=== PATIENT | male | born 1975 | race Caucasian/White ===

== ENCOUNTER 2021-01-18 20:08 | Emergency (ER) | payer OTHER, BC ==
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
[2021-01-18] MEDS ORDERED: Acetaminophen/HYDROcodone 325-5 MG Tab PO ONE (22:29)
--- NOTE | 2021-01-19 09:20 | CR ---
Left clavicle: 2 views of the left clavicle were obtained. Comparison: No prior clavicle study is available. Slightly comminuted fracture is noted within the shaft of the clavicle. There is foreshortening being seen with displacement by over a shaft width. Acromioclavicular joint is normal. No additional abnormality is appreciated. Impression: 1. Left clavicle fracture as described above. Diagnostic code #3
== END 2021-01-18 22:34 | disposition home or self-care (01) ==
LOC: JD.ED 20:08
DX: S42.022A Displaced fracture of shaft of left clavicle, initial encounter for closed fracture (principal); V19.9XXA Pedal cyclist (driver) (passenger) injured in unspecified traffic accident, initial encounter; Y92.410 Unspecified street and highway as the place of occurrence of the external cause
CPT/HCPCS: 73000; 99283; A9270

== ENCOUNTER 2021-01-24 06:22 | Day surgery (SDC) | payer BC ==
[~2021-01-24 06:22] MED LIST: Acetaminophen/HYDROcodone 325-5 MG Tab PO PRN; Dexamethasone 4 MG/ML 5 ML MDV ONE; EPINEPHrine 1 MG/ML SDV ONE; Ketorolac 30 MG/ML SDV ONE; Lidocaine 1% 4 ML ONE; Midazolam 1 MG/ML 2 ML SDV ONE; Ondansetron 4 MG/2 ML SDV ONE; Propofol 200 MG/20 ML SDV ONE; Rocuronium 50 MG/5 ML Vial ONE; Ropivacaine 0.5% 5 MG/ML 30 ML SDV ONE; ceFAZolin 1 GM Vial ONE; fentaNYL 250 MCG/5 ML SDV ONE
[2021-01-24] MEDS ORDERED: Bupivacaine 0.25% 10 ML SDV ONE (06:26)
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
[2021-01-24] MEDS ORDERED: Lactated Ringers 1,000 ML IV SCH (07:00)
[2021-01-24] MEDS ORDERED: Sodium Chloride 0.9% 10 ML Syringe FLUSH PRN (07:00)
[2021-01-24] MEDS ORDERED: Lidocaine 1%/Sod Bicarbonate in NS 8.4% 1 ML Syringe IDERM PRN (07:00)
[2021-01-24] MEDS ORDERED: ePHEDrine 50 MG/ML SDV ONE (07:26)
[2021-01-24] MEDS ORDERED: Lactated Ringers 1,000 ML ONE (07:52)
[2021-01-24] MEDS ORDERED: HYDROmorphone 0.5 MG/0.5 ML Syringe IVPUSH PRN (08:11)
[2021-01-24] MEDS ORDERED: Ondansetron 4 MG/2 ML SDV IVPUSH PRN (08:11)
[2021-01-24] MEDS ORDERED: fentaNYL 100 MCG/2 ML SDV IVPUSH PRN (08:11)
--- NOTE | 2021-01-24 08:53 | PCM.POSTAN ---
POST ANESTHESIA ASSESSMENT - MENTAL STATUS Mental Status: Alert, Oriented - VITAL SIGNS Vital Signs: Last Vital Signs Temp 97.3 F 01/24/21 08:40 Pulse 65 01/24/21 08:40 Resp 12 01/24/21 08:40 BP 116/0 L 01/24/21 08:40 Pulse Ox 99 01/24/21 08:40 - RESPIRATORY Respiratory Status: Respiratory Rate WNL, Airway Patent, O2 Saturation Stable - CARDIOVASCULAR CV Status: Pulse Rate WNL, Blood Pressure Stable - GASTROINTESTINAL GI Status: No Symptoms - PAIN Pain Score: 0 - POST OP HYDRATION Hydration Status: Adequate & Stable (No complaints at this time. )
--- NOTE | 2021-01-24 08:57 | PCM.PRNOTE ---
- Free Text/Narrative Note: Anesthesia Note: Left Interscalene Block Time Out: 06 Start: 656 Stop: 706 Procedure: Left interscalene block under US guidance for postoperative pain control requested by Dr. Sun. Patient chart reviewed, risk/benefits discussed with patient, consent obtained. Patient positioned supine with HOB up 30 degrees, monitors/alarms on, oxygen placed via nasal cannula at 2 LPM. IV sedation administered: Versed 2mg IV, Fentanyl 50mcg IV given in preop prior to block placement (also charted on OR AUG). Right shoulder prepped with three chloropreps. Sterile drapes placed with aseptic technique noted. Under US guidance, left subclavian artery visualized along with the left brachial plexus. Plexus followed up to C6 cricoid level, and area. Brachial plexus visualized with ultrasound. 22gauge 2 inch stimiplex needle advanced under US with 0.6mV with stimulation of biceps noted. Good stimulation noted with decreased voltage and absent at 0.3mVs. 1ml of Normal Saline injected with loss of stimulation noted to confirm needle not placed intraneurally. Incremental dosing of 5mls with negative aspiration noted prior to each injection of 0.5% ropivacaine with 1:200,000 epinephrine. Total volume=20mls. Patient tolerated procedure well. No paresthesias and no pressure felt by patient noted when injecting local anesthestic. 10 minutes following block patient denied pain to clavicle. Please refer to nurses noted for vital signs. Yoselyn Mehta CRNA
--- NOTE | 2021-01-24 08:58 | CR ---
Left clavicle: 3 fluoroscopic spot views were obtained of the left clavicle utilizing C-arm device. Comparison: Prior left clavicle study of 01/18/21. Study shows placement of plate and screws affixing previous clavicular fracture. Alignment appears to be anatomic. Minimal spurring is noted within the acromioclavicular joint. Fluoroscopy time is given as 5.2 seconds. Impression: 1. Procedural study as noted above. Diagnostic code #2
--- NOTE | 2021-01-24 10:42 | PCM48HPAN ---
Post Anesthesia Note - EVALUATION WITHIN 48HRS OF ANESTHETIC Vital Signs in Normal Range: Yes Patient Participated in Evaluation: Yes Respiratory Function Stable: Yes Airway Patent: Yes Cardiovascular Function Stable: Yes Hydration Status Stable: Yes Pain Control Satisfactory: Yes Nausea and Vomiting Control Satisfactory: Yes Mental Status Recovered: Yes Vital Signs: Last Vital Signs Temp 36.7 C 01/24/21 10:00 Pulse 55 L 01/24/21 10:00 Resp 16 01/24/21 10:00 BP 110/63 01/24/21 10:00 Pulse Ox 95 01/24/21 10:00
--- NOTE | 2021-02-08 06:53 | PCM.OPNOTE ---
- General Post-Op/Procedure Note Date of Surgery/Procedure: 01/24/21 Operative Procedure(s): open reduction internal fixation left clavicle shaft fracture Pre Op Diagnosis: left clavicle shaft fracture Post-Op Diagnosis: Same Anesthesia Technique: General ET Tube, Regional Block Primary Surgeon: Mason Sun Anesthesia Provider: Yoselyn Mehta Commodity Specialist: Cayla Oconnor EBL in mLs: 10 Complications: None Condition: Good
--- NOTE | 2021-02-08 10:36 | OR ---
DATE OF OPERATION: 01/24/2021 SURGEON: Mason Sun MD OPERATION PERFORMED: Open reduction and internal fixation of left midshaft clavicle fracture. PREOPERATIVE DIAGNOSIS: Left midshaft clavicle fracture. POSTOPERATIVE DIAGNOSIS: Left midshaft clavicle fracture. ANESTHESIA: General endotracheal intubation with regional interscalene block. ANESTHESIA PROVIDER: Osbaldo Sharpe. SALES BRANCH MANAGER: Cayla Oconnor PA-C ESTIMATED BLOOD LOSS: 10 mL. COMPLICATIONS: None. CONDITION: Stable. DESCRIPTION OF PROCEDURE: The patient was identified in the preoperative holding area. Proper site was marked and identified by the surgeon. The patient was taken back to the operative theater, where after adequate anesthesia, the patient was placed supine on a radiolucent table. Left upper extremity was then sterilely prepped and draped in the usual sterile fashion. OR time-out was performed. The patient received 2 g IV Ancef. The patient was placed in a reverse Trendelenburg position. Standard anterior incision was made over the clavicle. This was taken down through the platysma level. Fracture site was identified. There were noted to be 2 large butterfly fragments, 1 anteriorly and 1 posteriorly that were unable to be exposed without stripping soft tissue. The fracture site was curetted and rongeured of all the hematoma. Adequate saline was irrigated through the wound. A [id number] reduction clamp was then used to reduce the anterior butterfly fragment to the distal fragment and a 3.5 lag screw was then placed into that fragment. It had adequate fixation and anatomic reduction. The 2 main fragments were then reduced and a [place] locking Suture Bridge clavicle plate was placed. A nonlocking screw was then placed both proximally and distally at the fracture site in compression technique. Six cortices were then obtained both distally and proximally to the fracture site. It was found to be anatomically reduced on C-arm fluoroscopy on both superior and AP views. At this time, adequate saline was irrigated through the wound. 0 Vicryl was used for closure of the platysma level. 2-0 Vicryl was used subcutaneously, and Prineo was used for closure of the skin. The patient had a sterile soft dressing applied and was sent to the PACU in stable condition. MMODAL /[id number]
== END 2021-01-24 11:14 | disposition home or self-care (01) ==
LOC: JD.SDS 06:22
PROVIDERS: ATTEND Orthopaedic Surgery
DX: S42.022A Displaced fracture of shaft of left clavicle, initial encounter for closed fracture (principal); Z79.899 Other long term (current) drug therapy
CPT/HCPCS: 23515; 76000; C1713; J0171; J0690; J1100; J1885; J2250; J2405; J2704; J2710; J2795; J3010; J7120; 00450; 64415; 76942; J3490